=== PATIENT | female | born 1990 | race Caucasian/White ===

== ENCOUNTER 2020-03-24 06:37 | Outpatient (CLI) | payer OTHER ==
[~2020-03-24] VITALS: Ht 162.6 cm; Wt 76.6 kg
[~2020-03-24 06:37] MED LIST: ACET325T26 PO; DOCU-131 PO; IBUP-1222 PO; PREN1TAB60 PO
[2020-03-24 07:37] VITALS: BP 105/65
== END 2020-03-24 08:04 | disposition home or self-care (01) ==
LOC: LDOP 06:37
PROVIDERS: ATTEND Obstetrics & Gynecology
DX: O62.8 Other abnormalities of forces of labor (principal); Z3A.40 40 weeks gestation of pregnancy
CPT/HCPCS: 59025; 99201; G0463